=== PATIENT | male | born 1975 | race Caucasian/White ===

== ENCOUNTER → 2017-10-13 | Outpatient (CLI) | payer OTHER | LOC: M RAD 11:08 | DX: M79.669 Pain in unspecified lower leg (principal); M79.89 Other specified soft tissue disorders | CPT/HCPCS: 93971 ==

== ENCOUNTER 2024-12-07 11:06 | Emergency (ER) | payer OTHER ==
[~2024-12-07] VITALS: Ht 177.8 cm; Wt 99.2 kg
[2024-12-07] MEDS ORDERED: CYCL5TAB4 (11:17)
[2024-12-07] MEDS ORDERED: IBUP-1114 PO (11:17)
[2024-12-07] MEDS: CYCLOBENZAPRINE 10MG TABLET PO ONE (13:19)
[2024-12-07] MEDS: KETOROLAC 60MG 2ML VIAL IM ONE (13:24)
[2024-12-07] MEDS ORDERED: CYCL-707 PO (15:06)
[2024-12-07 15:17] VITALS: BP 181/88; TEMP 98; O2SAT 100
== END 2024-12-07 15:22 | disposition home or self-care (01) ==
LOC: M ED 11:06
DX: M51.26 Other intervertebral disc displacement, lumbar region (principal); M54.16 Radiculopathy, lumbar region; M54.32 Sciatica, left side; M47.896 Other spondylosis, lumbar region; F10.10 Alcohol abuse, uncomplicated; Z79.899 Other long term (current) drug therapy; Z79.1 Long term (current) use of non-steroidal anti-inflammatories (NSAID)
CPT/HCPCS: 72131; 96372; 99283; J1885